=== PATIENT | female | born 1965 | race Caucasian/White ===

== ENCOUNTER 2017-11-02 06:02 | Day surgery (SDC) | payer OTHER ==
[~2017-11-02 06:02] MED LIST: BACLOFEN20 MG PO; CIPRO250 MG PO; CRESTOR5 MG; CYMBALTA60 MG PO; DAYPRO600 MG PO; NEURONTIN600 MG PO; ULTRACET PO; ZANTAC300 MG PO; ZESTRIL2.5 MG
== END 2017-11-02 11:50 | disposition home or self-care (01) ==
LOC: CIR.AMB 06:02
DX: M75.111 Incomplete rotator cuff tear or rupture of right shoulder, not specified as traumatic (principal); M24.111 Other articular cartilage disorders, right shoulder

== ENCOUNTER → 2023-09-22 10:07 | Outpatient (CLI) | payer OTHER | END | disposition home or self-care (01) | LOC: NUCLEAR 10:00 | PROVIDERS: ATTEND Internal Medicine Geriatric Medicine | DX: I11.9 Hypertensive heart disease without heart failure (principal) ==